=== PATIENT | female | born 1965 | race Caucasian/White ===

== ENCOUNTER 2016-08-22 18:51 | Emergency (ER) | payer SELFPAY ==
--- NOTE | 2016-08-22 20:06 | ERNOTE ---
Lower Extremity HPI - Narrative Date of Service: 08/22/16 - General Lower Extremities Pain: knee: left Time Seen by Provider: 08/22/16 20:04 Source: patient - Immun/Allergies/Home Medications Immunizations: IMMUNIZATION HX Immunizations Up to Date Yes History of Influenza Vaccine No Hx Pneumococcal Vaccination No Allergies/Adverse Reactions: Allergies Allergy/AdvReac Type Severity Reaction Status Date / Time diazepam [From Valium] Allergy Severe Other Verified 10/23/15 00:32 Home Medications: HOME MEDICATIONS Atorvastatin Calcium [Lipitor] 10 mg PO DAILY 10/23/15 [Last Taken Unknown] Lisinopril [Zestril] 10 mg PO DAILY 10/23/15 [Last Taken Unknown] metFORMIN HCL [Glucophage] 1,000 mg PO BIDWM 10/23/15 [Last Taken Unknown] Aspirin [Aspirin EC] 81 mg PO DAILY 08/22/16 [Last Taken Unknown] Cholecalciferol [Vitamin D] 2,000 unit MC DAILY 08/22/16 [Last Taken Unknown] - History of Present Illness Narrative: C/O LEFT KNEE PAIN. SHE SAYS THAT EARLIER IN THE DAY SHE HAD SLIPPED ON A WET SSURFACE AND HER LEFT LEG SLID OFF TO THE SIDE CAUSING HER TO STRETCH HER LEFT KNEE TO KEEP FROM FALLING. SSHE NEVER ACTUALLY FELL OR HAD A BLOW TO HER KNEE. SHE SAYS IT UNDER THE AREA OF THE MEDIAL SIDE OF THE PATELLA. SHE HAS DONE NOTHING FOR IT SINCE IT HAPPENED. A FEW MONTHS AGO SHE HAD A MENISCUSS REPAIR TO THAT SSAME KNEE . SHE DOES HAVE A BRACE AT HOME THAT SHE USED ON THE KNEE POST -OP. Review of Systems - Review of Systems Constitutional: Present: See HPI Musculoskeletal: Present: joint pain - LEFT KNEE STRAIN -PAIN Skin: Present: no symptoms reported All Other Systems: All systems neg except as marked - Patient's Past Medical History Patient History - Medical: Diabetes Type 2 Patient History - Cardiac/Respiratory: Hypertension, Hyperlipidemia Patient History - Cancer: No Hx of Cancer Patient History - Surgical Procedures: , Hysterectomy, Other Patient History - Other: None - Social History Living Situations: home Psych History: No pertinent hx Smoking Status: Former smoker Have you smoked in the past 12 months: Yes Do you dip or chew tobacco: No Alcohol Use: none Drug Use: none - Immunizations Immunizations Up to Date: Yes Hx Pneumococcal Vaccination: No History of Influenza Vaccine: No Physical Exam - Physical Exam General Appearance: Present: wd/wn, alert, no apparent distress Peripheral Pulses: N=norm/S=strong/W=weak/B=bound/A=absent: Dorsalis-pedis (R): Normal, Dorsalis-pedis (L): Normal Extremity Exam: Present: normal inspection, no edema - BOTH KNEES MEASURE AT 47.5 CM CICUMFERENCE. THERE IS NO NOTABLE EFFUSSION OR DISCOLORATION OR ABRASION. SHE IS SL. TENDER TO PALPATION TO LEFT LATERAL PATELLA BUT NOT AT THE KNEE JOINT. THERE IS NO INSTABILITY DIFFERENCE NOTED WHEN COMPARING BOTH KNEES. SHE DOES C/O OF SORENESS WITH FLEXION OF THE LEFT KNEE BEYOND ~80 DEGREES. SHE HAS NORMAL DISTAL PULSES AND REFILL AND SENSATION. Neurological Exam: Present: alert, oriented Skin Exam: Present: normal color, warm/dry ED Progress - Vital Signs Vital Signs: Vital Signs 08/22/16 19:00 Temperature 37.0 C Pulse Rate 72 Respiratory 20 Rate Blood Pressure 170/103 O2 Sat by Pulse 100 Oximetry - Progress/Reassessment Chief Complaint: Lower Extremity Pain/ Injury Departure Clinical Impression: Knee sprain Qualifiers: Encounter type: initial encounter Involved ligament of knee: unspecified ligament Laterality: left Qualified Code(s): S83.92XA - Sprain of unspecified site of left knee, initial encounter - Departure Disposition: Home Follow Up Needed Condition: Good Instructions: Knee Sprain, [id number] Additional Instructions: use your left knee brace from your Nov surgery. Gentle activity. Try to elevate knee use ice for 30 mins every 4 hours for 1-2 days to control any swelling. After that use heat for comfort. Recheck with your orthopedic doctor in [place].-- call them tomorrow to get an appointment. Yoeren can use tylenol 650 mg every 4 hours and/or ibuprofen 600 mg every 8 hours for pain if needed. When elevated keep your left foot and ankle moving to help circulation in the leg ( ankle pumps) like you did after surgery.
--- OUTSIDE RECORDS SUMMARY | 2016-08-22 20:14 | XMS REPORT | Continuity of Care Document ---
:1965 Author Organization [facility] ([facility]) [place] [address] Phone [phone] Care Team Providers Name Role Phone Provider, No-Primary Care Primary Care Provider Unavailable Source Comments This disclosure is being made pursuant to the Care Everywhere program, applicable federal and state laws, and may not contain all informaitonavailable regarding this patient.[facility] ([facility]) Active Allergies and Adverse Reactions No Known Allergies Current Medications Prescription Sig. Disp. Refills Start Date End Date Status cyclobenzaprine 10 mg Take 1 tablet 21 tablet 0 07/04/2015 Active tablet (10 mg total) by mouth 3 times daily as needed. Active Problems Problem Noted Date Type 2 diabetes mellitus without complication 07/04/2015 Social History Tobacco Use Types Packs/Day Years Used Date Never Assessed Last Filed Vital Signs Vital Sign Reading Time Taken Blood Pressure 174/114 07/03/2015 10:22 PM CDT Pulse 80 07/03/2015 10:22 PM CDT Temperature - - Respiratory Rate 14 07/03/2015 10:22 PM CDT Height - - Weight - - Body Mass Index - - Oxygen Saturation 99% 07/03/2015 10:22 PM CDT Plan of Care Health Maintenance Due Date Last Done Comments Hepatitis B Vaccine (1 of 3 - Primary Series) 1965 Tdap Vaccine 1976 DIABETIC: Cholesterol 12/09/1983 Diabetic: Hdl 12/09/1983 DIABETIC: Hemoglobin A1C 12/09/1983 Diabetic: Ldl 12/09/1983 DIABETIC: Microalbumin 12/09/1983 DIABETIC: Triglycerides 12/09/1983 MMR Vaccine 12/09/1983 Td Vaccine 12/09/1983 Pneumococcal Vaccine (1 of 1 - PPSV23) 1984 Cervical Cancer Screening 12/09/1995 Mammogram 2005 Influenza Vaccine: Seasonal (#1) 11/03/2015 Colonoscopy 2015 DIABETIC: Foot Exam 01/18/2016 DIABETIC: Retinal Eye Exam 01/18/2016 Results from Last 3 Months Not on file
[2016-08-22 20:43] VITALS: BP 159/86
== END 2016-08-22 20:40 | disposition home or self-care (01) ==
LOC: ER 18:51
DX: S83.92XA Sprain of unspecified site of left knee, initial encounter (principal); W01.0XXA Fall on same level from slipping, tripping and stumbling without subsequent striking against object, initial encounter; Y93.9 Activity, unspecified; Y92.9 Unspecified place or not applicable; E11.9 Type 2 diabetes mellitus without complications; I10 Essential (primary) hypertension; E78.5 Hyperlipidemia, unspecified; Z72.0 Tobacco use

== ENCOUNTER 2016-09-23 21:40 | Emergency (ER) | payer MEDICAID ==
[2016-09-23] MEDS ORDERED: HYDROcodone/ACETAMINOPHEN 1 EACH TABLET PO ONE (22:01)
[2016-09-23 22:05] LABS: Hematocrit 36.9 % (37.0-47.0); Hemoglobin 12.1 gm/dL (12.5-16.0); Mean Cell Volume 85.6 fl (78-100); Mean Corpuscular Hemoglobin 28.1 pg (27-31); Mean Corpuscular Hgb Conc 32.8 g/dl (32-36); Mean Platelet Volume 10.3 fl (6.0-9.5); Neutrophil # 5.3 K/mm3 (1.3-6.0); Platelet Count 205 K/mm3 (150-450); Red Blood Count 4.31 M/mm3 (4.2-5.4); Red Cell Distribution Width 13.1 % (11.5-14.0); White Blood Count 8.9 K/mm3 (4.0-10.5)
--- NOTE | 2016-09-23 22:05 | ERNOTE ---
Abdominal HPI - Narrative Date of Service: 09/23/16 - General Chief Complaint: Abdominal Pain Time Seen by Provider: 09/23/16 21:50 Source: patient Exam Limitations: no limitations - Immun/Allergies/Home Medications Immunizatons: IMMUNIZATION HX Immunizations Up to Date Yes History of Influenza Vaccine No Hx Pneumococcal Vaccination No Allergies/Adverse Reactions: Allergies diazepam [From Valium] Allergy (Severe, Verified 09/23/16 21:47) Other Home Medications: HOME MEDICATIONS Atorvastatin Calcium [Lipitor] 10 mg PO DAILY 10/23/15 [Last Taken Unknown] Lisinopril [Zestril] 10 mg PO DAILY 10/23/15 [Last Taken Unknown] metFORMIN HCL [Glucophage] 1,000 mg PO BIDWM 10/23/15 [Last Taken Unknown] Aspirin [Aspirin EC] 81 mg PO DAILY 08/22/16 [Last Taken Unknown] Cholecalciferol [Vitamin D] 2,000 unit MC DAILY 08/22/16 [Last Taken Unknown] Naproxen [Naprosyn] 500 mg PO BID PRN #20 tablet 09/23/16 [Last Taken Unknown] - History of Present Illness Narrative: 50 year old that has been having LUQ pain for several months, which has been getting progressively worse. Over the last three days the pain has acutely worsened. The patient believes that the pain is associated with a abdominal hernia. The pain is also associated with bending, twisting and other movements. Typically rubbing the abdominal wall decreases the pain. Took two Alleve this morning for the pain. No complaints of fever, chill, N/V, changes in bowel habits, or back pain. The patient has not been seen by a provider for the pain since she only recently got insurance. Date (Duration): 09/23/16 Timing: intermittent Quality: severe Activities at Onset: activity Modifying Factors - (Improves): Present: other - rubbing the abdomen Modifying Factors - (Worsens): Present: movement Associated Symptoms: Present: denies symptoms Review of Systems - Review of Systems Constitutional: Present: no symptoms reported EYE: Present: no symptoms reported ENT: Present: no symptoms reported Respiratory: Present: no symptoms reported Cardiology: Present: no symptoms reported Gastrointestinal/Abdominal: Present: no symptoms reported Genitourinary: Present: no symptoms reported Musculoskeletal: Present: no symptoms reported Neurological: Present: no symptoms reported Endocrine: Present: no symptoms reported Hematologic/Lymphatic: Present: no symptoms reported Psych: Present: no symptoms reported - Patient's Past Medical History Patient History - Medical: Diabetes Type 2 Patient History - Cardiac/Respiratory: Hypertension, Hyperlipidemia Patient History - Cancer: No Hx of Cancer Patient History - Surgical Procedures: , Hysterectomy, Other Patient History - Other: None - Social History Living Situations: significant other Psych History: No pertinent hx Smoking Status: Former smoker Alcohol Use: none Drug Use: none - Immunizations Immunizations Up to Date: Yes Hx Pneumococcal Vaccination: No History of Influenza Vaccine: No Physical Exam - Physical Exam General Appearance: Present: mild distress Eye Exam: Normal inspection: bilateral Ears, Nose, Throat: Present: normal ENT inspection Neck: Present: normal inspection Respiratory: Present: no respiratory distress Cardiovascular/Chest: Present: regular rate, rhythm Gastrointestinal/Abdominal: Present: tenderness - present at the left mid abdominal wall on deep palpation. No defect was palpable.. Absent: distended, guarding, rebound, hernia Back Exam: Present: normal inspection Extremity Exam: Present: normal inspection Neurological Exam: Present: alert, oriented, normal mood/affect Skin Exam: Present: normal color ED Progress - Results and Orders Patient's Lab Results:: I have reviewed the patient's lab results. - Vital Signs Patient's Vital Signs:: I have reviewed the patient's vital signs. Vital Signs: Vital Signs 09/23/16 21:42 Temperature 36.5 C Pulse Rate 81 Respiratory 18 Rate Blood Pressure 165/87 - CT/Ultrasound CT/Ultrasound Narrative: CT Scan of the abdomen and pelvis: 1. 3.2 cm right adrenal mass 2. 3.8 x 3.6 left ovarian lesion 3. 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 Follow up with your doctor in the next 5-7 days. Return to the ED if the pain worsens. Prescriptions: Naproxen [Naprosyn] 500 mg PO BID PRN #20 tablet PRN Reason: Pain
[2016-09-23 22:08] LABS: Urine Bilirubin Negative (NEGATIVE); Urine Blood Negative /ul (NEGATIVE); Urine Ketone Negative (NEGATIVE); Urine Nitrite Negative (NEGATIVE); Urine Protein Negative (NEGATIVE); Urine Specific Gravity 1.025 SP.GR. (1.005-1.010); Urine Urobilinogen Normal (NORMAL)
[2016-09-23] MEDS ORDERED: HYDROcodone/ACETAMINOPHEN 1 EACH TABLET ONE (22:10)
[2016-09-23 22:18] LABS: Albumin * 3.4 gm/dl (3.4-5.0); Anion Gap 11.2 mmol/L (6.8-13.8); BUN/Creatinine Ratio 17.4 (9.0-21.6); Bilirubin, Total 0.2 mg/dL (0.0-1.1); Calcium * 8.8 mg/dL (7.9-10.9); Carbon Dioxide 28.9 mmol/L (24-32.6); Potassium 4.1 mmol/L (3.4-4.6); Total Protein 7.4 gm/dL (6.2-8.2)
[2016-09-23 22:19] LABS: Urine Appearance Slightly Cloudy; Urine Color Yellow; Urine RBC 0-5 /hpf (0-5); Urine WBC 0-5 /hpf (0-5)
[2016-09-23 22:20] LABS: Urine Bacteria 1+
[2016-09-23 23:30] VITALS: BP 123/77
[2016-09-23] MEDS ORDERED: MAGNESIUM CITRATE 300 ML BTL PO ONE (23:32)
[2016-09-23] MEDS ORDERED: MAGNESIUM CITRATE 300 ML BTL ONE (23:36)
== END 2016-09-23 23:51 | disposition home or self-care (01) ==
LOC: ER 21:40
DX: R10.12 Left upper quadrant pain (principal); E11.9 Type 2 diabetes mellitus without complications; I10 Essential (primary) hypertension; E78.5 Hyperlipidemia, unspecified